=== PATIENT | female | born 1955 ===

== ENCOUNTER → 2019-05-07 | Day surgery (SDC) | payer OTHER ==
[~2019-05-07] MED LIST: ATACAND16 MG PO; CARAFATE1 GM PO; CARDIZEM CD240 MG PO; FORTAMET500 MG PO; NEURONTIN800 MG PO; PROTONIX40 M1 PO; SINGULAIR10 MG PO; SYNTHROID75 MCG PO; ULTRAM50 MG PO; ZOCOR40 MG PO
== END | disposition home or self-care (01) ==
LOC: ADM 05-01 08:30 → CIR.AMB 08:30
DX: M19.041 Primary osteoarthritis, right hand (principal)